=== PATIENT | male | born 1985 | race American Indian/Alaskan Native ===

== ENCOUNTER 2018-04-26 02:15 | Emergency (ER) | payer OTHER ==
[2018-04-26 03:10] LABS: Basophils % (Auto) 0.3 % (0.0-1.8); Eosinophils % (Auto) 0.4 % (0.0-4.3); Hematocrit 48.6 % (35.5-45.6); Hemoglobin 16.9 gm/dl (11.8-15.2); Lymphocytes # (Auto) 0.6 K/mm3 (1.2-5.4); Lymphocytes % (Auto) 6.6 % (13.4-35.0); Mean Corpuscular HGB Conc 35 % (32-34); Mean Corpuscular Volume 95 fl (84-94); Monocytes # (Auto) 0.6 K/mm3 (0.0-0.8); Monocytes % (Auto) 6.3 % (0.0-7.3); Platelet Count 248 K/mm3 (140-440); Red Blood Count 5.11 M/mm3 (3.65-5.03); Red Cell Distribution Width 13.1 % (13.2-15.2)
[2018-04-26 03:30] LABS: Alanine Aminotransferase 37 units/L (7-56); Albumin 4.4 g/dL (3.9-5); BUN/Creatinine Ratio 17; Blood Urea Nitrogen 20 mg/dL (9-20); Calcium 8.7 mg/dL (8.4-10.2); Hemolysis Index 5
[2018-04-26] MEDS ORDERED: NACL 0.9% 1000 ML 1,000 ML IV ONE (07:57)
[2018-04-26] MEDS ORDERED: ZOFRAN IV ONE (07:57)
[2018-04-26] MEDS ORDERED: SUBLIMAZE IV ONE (07:57)
--- NOTE | 2018-04-26 08:01 | Emergency Department Report ---
HPI - General Chief Complaint: Abdominal Pain Time Seen by Provider: 04/26/18 07:50 - HPI HPI: Room 5 The patient is a 32-year-old male presenting with a chief complaint of abdominal pain nausea and vomiting. The patient states yesterday she had eaten a turkey leg and was prepared the day before but left in his car trunk. The patient states 30 minutes later again develop abdominal upset. Patient states he developed diffuse abdominal cramping nausea vomiting and diarrhea. Patient began to feel dizzy as well. Symptoms worsened throughout the day the patient was found to be febrile at 101F. Location: Gastrointestinal system Duration: [See above] Quality: Cramping Severity: Moderate Modifying factors: [see above] Context: [see above] Mode of transportation: [not driving] ED Past Medical Hx - Past Medical History Previous Medical History?: Yes Hx Hypertension: Yes Hx Asthma: Yes - Surgical History Past Surgical History?: No - Family History Family history: no significant - Social History Smoking Status: Current Every Day Smoker (occasional) Substance Use Type: None (denies illicit drug use), Alcohol (occasional) - Medications Home Medications: Home Medications Medication Instructions Recorded Confirmed Last Taken Type Ciprofloxacin HCl [Ciprofloxacin 500 mg PO Q12H #20 tab 04/26/18 Unknown Rx TAB] HYDROcodone/APAP 5-325 [Franklin 1 - 2 each PO Q6HR PRN #14 tablet 04/26/18 Unknown Rx 5/325] Promethazine [Phenergan TAB] 25 mg PO Q6HR PRN #20 tab 04/26/18 Unknown Rx Promethazine [Phenergan] 25 mg [place] Q6HR PRN #5 supp.rect 04/26/18 Unknown Rx ED Review of Systems ROS: Stated complaint: FEVER DIZZINES NV Other details as noted in HPI Constitutional: fever Eyes: denies: eye pain ENT: denies: throat pain Respiratory: no symptoms reported Cardiovascular: denies: chest pain Endocrine: no symptoms reported Gastrointestinal: abdominal pain, nausea, vomiting, diarrhea Genitourinary: denies: dysuria Musculoskeletal: denies: back pain Neurological: denies: headache Physical Exam - Physical Exam Vital Signs: Vital Signs 04/26/18 04/26/18 02:27 06:07 Temperature 99.5 F 99.2 F Pulse Rate 101 H 88 Respiratory 20 18 Rate Blood Pressure 126/68 Blood Pressure 90/70 [Left] O2 Sat by Pulse 97 100 Oximetry Physical Exam: GENERAL: The patient is well-developed well-nourished male lying on stretcher not appearing to be in acute distress. [] HEENT: Normocephalic. Atraumatic. Extraocular motions are intact. Patient has moist mucous membranes. NECK: Supple. Trachea midline CHEST/LUNGS: Clear to auscultation. There is no respiratory distress noted. HEART/CARDIOVASCULAR: Regular. There is no tachycardia. There is no gallop rub or murmur. ABDOMEN: Abdomen is soft, with mild discomfort to palpation in the right lower quadrant and left lower quadrant. There is no rebound or guarding. Patient has normal bowel sounds. There is no abdominal distention. SKIN: There is no rash. There is no edema. There is no diaphoresis. NEURO: The patient is awake, alert, and oriented. The patient is cooperative. The patient has normal speech MUSCULOSKELETAL: There is no evidence of acute injury. ED Course Vital Signs 04/26/18 04/26/18 02:27 06:07 Temperature 99.5 F 99.2 F Pulse Rate 101 H 88 Respiratory 20 18 Rate Blood Pressure 126/68 Blood Pressure 90/70 [Left] O2 Sat by Pulse 97 100 Oximetry ED Medical Decision Making - Lab Data Result diagrams: 04/26/18 02:45 04/26/18 02:45 Laboratory Tests 04/26/18 04/26/18 04/26/18 02:45 02:45 08:02 WBC 9.6 RBC 5.11 H Hgb 16.9 H Hct 48.6 H MCV 95 H MCH 33 H MCHC 35 H RDW 13.1 L Plt Count 248 Lymph % (Auto) 6.6 L Towner % (Auto) 6.3 Eos % (Auto) 0.4 Baso % (Auto) 0.3 Lymph # 0.6 L Towner # 0.6 Eos # 0.0 Baso # 0.0 Seg Neutrophils % 86.4 H Seg Neutrophils # 8.3 H Sodium 137 Potassium 4.1 Chloride 99.3 Carbon Dioxide 26 Anion Gap 16 BUN 20 Creatinine 1.2 Estimated GFR > 60 BUN/Creatinine Ratio 17 Glucose 112 H Calcium 8.7 Total Bilirubin 0.50 AST 21 ALT 37 Alkaline Phosphatase 75 Total Protein 7.8 Albumin 4.4 Albumin/Globulin Ratio 1.3 Lipase 22 - Radiology Data Radiology results: report reviewed (CT abdomen and pelvis), image reviewed (CT abdomen and pelvis) [facility] [address] [place] [address] Cat Scan Report Signed Patient: SMITHA BRANCH MR#: [id number] : 1985 Acct:[id number] Age/Sex: 32 / M ADM Date: 04/26/18 Loc: ED Attending Dr: Ordering Physician: NAREN JOHNSON MD Date of Service: 04/26/18 Procedure(s): CT abdomen pelvis w con Accession Number(s): [id number] cc: NAREN JOHNSON MD FINAL REPORT EXAM: CT ABDOMEN PELVIS W CON HISTORY: nausea vomiting after eating poultry TECHNIQUE: CT abdomen and pelvis performed. Images extend from diaphragm to pubic symphysis. IV contrast was administered. No oral contrast was administered. Axial images and coronal and sagittal reformatted images were obtained. PRIORS: None. FINDINGS: The visualized aspects of the lung bases are clear. The visualized liver, spleen, pancreas, adrenal glands and kidneys demonstrate no significant abnormalities. There is no abdominal aortic aneurysm. There is no evidence of intestinal obstruction. The appendix is normal. There are no abnormal fluid collections seen. There is no free intraperitoneal air. The bladder is unremarkable. There is no abnormal pelvic mass or fluid collections seen. IMPRESSION: There is no acute abnormality identified. Transcribed By: ROSY Dictated By: MEGHAN VIVEROS MD Electronically Authenticated By: MEGHAN VIVEROS MD Signed Date/Time: 04/26/18913 DD/ 2 TD/TT: 04/26/18912 - Differential Diagnosis gastroenteritis, Salmonella, small bowel shortness Critical care attestation.: If time is entered above; I have spent that time in minutes in the direct care of this critically ill patient, excluding procedure time. ED Disposition Clinical Impression: Foodborne gastroenteritis, Acute abdominal pain Disposition: DC-01 TO HOME OR SELFCARE Is pt being admited?: No Does the pt Need Aspirin: No Condition: Stable Instructions: Acute Nausea and Vomiting (ED), Food Poisoning (ED), Gastroenteritis (ED) Additional Instructions: Return to the emergency department immediately should you develop worsening symptoms, fever, inability to tolerate food or liquid or any other concerns. Prescriptions: Ciprofloxacin HCl [Ciprofloxacin TAB] 500 mg PO Q12H #20 tab HYDROcodone/APAP 5-325 [Franklin 5/325] 1 - 2 each PO Q6HR PRN #14 tablet PRN Reason: Pain Promethazine [Phenergan TAB] 25 mg PO Q6HR PRN #20 tab PRN Reason: Nausea Promethazine [Phenergan] 25 mg [place] Q6HR PRN #5 supp.rect PRN Reason: Vomiting Referrals: BRITTNEY POPE [Primary Care Provider] - 3-5 Days Time of Disposition: 09:34
--- NOTE | 2018-04-26 09:14 | Cat Scan Report ---
FINAL REPORT EXAM: CT ABDOMEN PELVIS W CON HISTORY: nausea vomiting after eating poultry TECHNIQUE: CT abdomen and pelvis performed. Images extend from diaphragm to pubic symphysis. IV co ntrast was administered. No oral contrast was administered. Axial images and coronal and sagittal ref ormatted images were obtained. PRIORS: None. FINDINGS: The visualized aspects of the lung bases are clear. The visualized liver, spleen, pancreas, adrenal glands and kidneys demonstrate no significant abnorma lities. There is no abdominal aortic aneurysm. There is no evidence of intestinal obstruction. The appendix is normal. There are no abnormal fluid collections seen. There is no free intraperitoneal air. The bladder is unremarkable. There is no abnormal pelvic mass or fluid collections seen. IMPRESSION: There is no acute abnormality identified.
[2018-04-26 09:30] VITALS: BP 133/54
== END 2018-04-26 10:00 | disposition home or self-care (01) ==
LOC: ED 02:15
DX: A05.9 Bacterial foodborne intoxication, unspecified (principal); I10 Essential (primary) hypertension; J45.909 Unspecified asthma, uncomplicated; F17.200 Nicotine dependence, unspecified, uncomplicated; R42 Dizziness and giddiness; Z88.0 Allergy status to penicillin
CPT/HCPCS: 36415; 74177; 80053; 83690; 85025; 96361; 96374; 96375; 99284; J2405; J3010; J7030; Q9967